=== PATIENT | female | born 1970 ===

== ENCOUNTER 2016-10-04 08:30 | Emergency (ER) | payer MEDICAID, OTHER ==
[2016-10-04 08:47] VITALS: RESP 16
[2016-10-04 09:21] LABS: RBC URINE 1 /hpf (0-3); URINE BILIRUBIN NEGATIVE (NEGATIVE); URINE BLOOD NEGATIVE (NEGATIVE); URINE COLOR Yellow (YELLOW); URINE GLUCOSE (UA) NORMAL (Normal); URINE KETONE NEGATIVE (NEGATIVE); URINE LEUKOCYTE ESTERASE NEG Leu/uL (Negative); URINE PROTEIN NEGATIVE (NEGATIVE); URINE UROBILINOGEN NORMAL mg/dL (0.2-1.0); WBC URINE 1 /hpf (0-5)
--- NOTE | 2016-10-04 10:13 | C.PDOC ---
History Of Present Illness 46 year old patient, with a past medical history of hypercholesterolemia, presents to the ED complaining of chronic pelvic pain that has been worsening for the past month. Patient also complains of dysuria and discomfort urinating. Patient denies constipation, fever, nausea, vomiting, back pain, vaginal bleeding or discharge. Time Seen by Provider: 10/04/16 08:46 Chief Complaint (Nursing): Female Genitourinary History Per: Patient History/Exam Limitations: language barrier (translated by ED RAMIRO Tee) Onset/Duration Of Symptoms: Other (chronic) Current Symptoms Are (Timing): Still Present Severity: Mild Pain Scale Rating Of: 3 Quality Of Discomfort: "Pain" Associated Symptoms: Urinary Symptoms Alleviating Factors: None Recent travel outside of the [place]: No Abnormal Vaginal Bleeding: No Past Medical History Reviewed: Historical Data, Nursing Documentation, Vital Signs Vital Signs: Last Vital Signs Temp 98.4 F 10/04/16 10:20 Pulse 82 10/04/16 10:20 Resp 16 10/04/16 10:20 BP 121/68 10/04/16 10:20 Pulse Ox 99 10/04/16 11:38 - Medical History PMH: Hypercholesterolemia Family History: States: Unknown Family Hx - Social History Hx Tobacco Use: No Hx Alcohol Use: No Hx Substance Use: No - Immunization History Hx Tetanus Toxoid Vaccination: No Hx Influenza Vaccination: Yes Hx Pneumococcal Vaccination: No Review Of Systems Except As Marked, All Systems Reviewed And Found Negative. Constitutional: Negative for: Fever Gastrointestinal: Negative for: Nausea, Vomiting, Constipation Genitourinary: Positive for: Dysuria, Pelvic Pain (chronic). Negative for: Incontinence, Hematuria, Vaginal Discharge, Vaginal Bleeding Musculoskeletal: Negative for: Back Pain Physical Exam - Physical Exam Appears: Non-toxic, No Acute Distress Skin: Warm, Dry Head: Atraumatic, Normacephalic Neck: Normal ROM, Supple Chest: Symmetrical Cardiovascular: Rhythm Regular Respiratory: Normal Breath Sounds, No Rales, No Rhonchi, No Wheezing Gastrointestinal/Abdominal: Soft, Tenderness (mild suprapubic), No Guarding, No Rebound Back: Normal Inspection, No CVA Tenderness Extremity: Normal ROM Neurological/Psych: Oriented x3 Gait: Steady ED Course And Treatment - Laboratory Results Urine POC: Negative O2 Sat by Pulse Oximetry: 99 (room air) Pulse Ox Interpretation: Normal Progress Note: Plan: Urinalysis. Progress: Patient is negative for or UTI. Patient was offered an Abdomen/Pelvis CT scan and pain medication, but she refused both. Patient instructed to follow up with manager film and urologist. Return if symptoms persist/worsen. Disposition Counseled Patient/Family Regarding: Studies Performed, Diagnosis, Need For Followup, Rx Given - Disposition Referrals: [facility] [Outside] [facility] [Outside] Amrit Watt Jr., MD [Staff Provider] - Leobardo Perdue [Staff Provider] - Disposition: HOME/ ROUTINE Disposition Time: 10:10 Condition: STABLE Additional Instructions: FOLLOW UP WITH PMD/CLINIC AND UROLOGIST AND BIOMEDICAL ELECTRONICS TECHNICIAN FOR FURTHER EVALUATION OF PELVIC PAIN. IF SYMPTOMS GET WORSE OR ANY NEW CONCERNING SYMPTOMS DEVELOP RETURN TO ED. Prescriptions: Ibuprofen [Motrin Tab] 1 tab PO Q6H PRN #15 tab PRN Reason: Pain, Moderate (4-7) Phenazopyridine [Pyridium] 1 tab PO TID PRN #6 tab PRN Reason: Pain, Moderate (4-7) Instructions: Pelvic Pain in Women (ED), Dysuria (ED) Forms: Gen Discharge Inst Syriac Print Language: MONGOLIAN - Clinical Impression Clinical Impression: Pelvic pain, Dysuria - PA / ELECTRONIC BENCH TECHNICIAN / Resident Statement MD/DO has reviewed & agrees with the documentation as recorded. - Scribe Statement The provider has reviewed the documentation as recorded by the Scribe Oneyda Méndez All medical record entries made by the Scribe were at my direction and personally dictated by me. I have reviewed the chart and agree that the record accurately reflects my personal performance of the history, physical exam, medical decision making, and the department course for this patient. I have also personally directed, reviewed, and agree with the discharge instructions and disposition.
[2016-10-04 10:21] VITALS: BP 121/68; PULSE 82; TEMP 98.4; O2SAT 99
== END 2016-10-04 10:21 | disposition home or self-care (01) ==
LOC: C.ER 08:30
DX: R10.2 Pelvic and perineal pain (principal); R30.0 Dysuria